=== PATIENT | female | born 1960 | race Caucasian/White ===

== ENCOUNTER → 2023-04-13 15:14 | Outpatient (REF) | payer MEDICARE, OTHER, SELFPAY | LOC: HWRAD 15:14 | PROVIDERS: ATTENDING PHYSICIAN Internal Medicine | DX: Z12.31 Encounter for screening mammogram for malignant neoplasm of breast (principal); Z78.0 Asymptomatic menopausal state | CPT/HCPCS: 77063; 77067; 77080 ==

== ENCOUNTER → 2023-06-27 06:25 | Day surgery (SDC) | payer MEDICARE, OTHER, SELFPAY | LOC: GI 06:25 | PROVIDERS: ATTENDING PHYSICIAN Internal Medicine; FAMILY PHYSICIAN Internal Medicine | DX: Z12.11 Encounter for screening for malignant neoplasm of colon (principal); D12.3 Benign neoplasm of transverse colon; D12.5 Benign neoplasm of sigmoid colon; K57.30 Diverticulosis of large intestine without perforation or abscess without bleeding; K62.1 Rectal polyp | CPT/HCPCS: 45385; 45380; 88305 ==

== ENCOUNTER → 2023-12-07 10:33 | Outpatient (REF) | payer MEDICARE, OTHER, SELFPAY | LOC: RAD 10:33 | PROVIDERS: ATTENDING PHYSICIAN Internal Medicine; OTHER PHYSICIAN Internal Medicine Cardiovascular Disease | DX: I71.21 Aneurysm of the ascending aorta, without rupture (principal) | CPT/HCPCS: 71250 ==

== ENCOUNTER → 2023-12-22 16:23 | Outpatient (REF) | payer MEDICARE, OTHER, SELFPAY ==
[2023-12-22 17:57] LABS: IgA 235 mg/dl (70-400); IgG 770 mg/dl (700-1600); IgM 47 mg/dl (40-230)
[2023-12-23 11:58] LABS: Rheumatoid Agglutinin Less Than 10 IU (<10 IU)
[2023-12-25 08:42] LABS: ANA, IgG Reflex to HEp-2 None Detected (None Detected)
== END ==
LOC: REG 16:23
PROVIDERS: ATTENDING PHYSICIAN Internal Medicine Critical Care Medicine; FAMILY PHYSICIAN Internal Medicine
DX: J84.9 Interstitial pulmonary disease, unspecified (principal)
CPT/HCPCS: 36415; 82085; 82784; 83516; 86038; 86225; 86235; 86331; 86430; 86606

== ENCOUNTER → 2024-02-28 14:21 | Outpatient (REF) | payer MEDICARE, OTHER, SELFPAY | LOC: HWRAD 14:21 | PROVIDERS: ATTENDING PHYSICIAN Internal Medicine | DX: M79.604 Pain in right leg (principal); M54.50 Low back pain, unspecified; I70.90 Unspecified atherosclerosis | CPT/HCPCS: 72100; 75571 ==

== ENCOUNTER → 2024-03-22 13:42 | Outpatient (REF) | payer MEDICARE, OTHER, SELFPAY ==
[2024-03-23 07:36] LABS: Glycohemoglobin (HgbA1c) 5.5 % (4.0-5.6)
== END ==
LOC: HWLAB 13:42
PROVIDERS: ATTENDING PHYSICIAN Internal Medicine
DX: R73.9 Hyperglycemia, unspecified (principal)
CPT/HCPCS: 36415; 83036

== ENCOUNTER → 2024-04-12 09:02 | Outpatient (REF) | payer MEDICARE, OTHER, SELFPAY ==
[2024-04-12 18:17] LABS: Hepatitis B Surface Antigen Negative (Negative)
[2024-04-12 18:34] LABS: Hepatitis C Antibody Negative (Negative)
[2024-04-13 12:54] LABS: HIV Combo Negative (Negative)
[2024-04-13 12:55] LABS: Syphilis/T. pallidum Ab Reflex Negative (Negative)
== END ==
LOC: HWRAD 09:02
PROVIDERS: ATTENDING PHYSICIAN Obstetrics & Gynecology; FAMILY PHYSICIAN Internal Medicine
DX: Z20.2 Contact with and (suspected) exposure to infections with a predominantly sexual mode of transmission (principal)
CPT/HCPCS: 36415; 86780; 86803; 87340; 87389

== ENCOUNTER → 2024-11-19 15:59 | Outpatient (REF) | payer MEDICARE, OTHER, SELFPAY | LOC: HWRCS 15:59 | PROVIDERS: ATTENDING PHYSICIAN Internal Medicine Cardiovascular Disease; FAMILY PHYSICIAN Internal Medicine | DX: I77.810 Thoracic aortic ectasia (principal) | CPT/HCPCS: 93306 ==

== ENCOUNTER → 2024-11-23 10:02 | Outpatient (REF) | payer MEDICARE, OTHER, SELFPAY | LOC: HWWDC 10:02 | PROVIDERS: ATTENDING PHYSICIAN Internal Medicine | DX: Z12.31 Encounter for screening mammogram for malignant neoplasm of breast (principal) | CPT/HCPCS: 77063; 77067 ==

== ENCOUNTER → 2024-12-27 07:54 | Outpatient (REF) | payer MEDICARE, OTHER, SELFPAY | LOC: WDC 07:54 | PROVIDERS: ATTENDING PHYSICIAN Internal Medicine | DX: N63.10 Unspecified lump in the right breast, unspecified quadrant (principal); N63.20 Unspecified lump in the left breast, unspecified quadrant; N63.24 Unspecified lump in the left breast, lower inner quadrant; N63.13 Unspecified lump in the right breast, lower outer quadrant | CPT/HCPCS: 76642 ==